=== PATIENT | male | born 1970 | race Caucasian/White ===

== ENCOUNTER 2023-08-25 11:16 | Emergency (ER) | payer OTHER ==
[~2023-08-25] VITALS: Ht 177.8 cm; Wt 95.5 kg
[2023-08-25 11:34] VITALS: BP 131/84; PULSE 80; RESP 18; TEMP 97.5; O2SAT 95
== END 2023-08-25 13:09 | disposition home or self-care (01) ==
LOC: ER 11:16
CPT/HCPCS: 99283